=== PATIENT | female | born 1980 | race Caucasian/White ===

== ENCOUNTER 2020-11-16 16:44 | Outpatient (CLI) | payer OTHER, SELFPAY ==
--- NOTE | ~2020-11-16 | XR_ITS ---
EXAMINATION: XR abdomen obstructive series DATE: 11/16/2020 17:09 INDICATION: Worsening frequent lower abdominal pain. TECHNIQUE: Frontal supine and upright views of the abdomen were obtained. COMPARISON: None. FINDINGS: Moderate amount of stool scattered throughout the colon. No dilated loops of gas-filled bowel to sugg est obstruction. No free intraperitoneal gas. There is some gas within a moderate to large hiatal her daquan. Visualized lung bases are clear. Heart size is normal. IUD projects over the central pelvis in e xpected position. IMPRESSION: 1. Moderate to large hiatal hernia. 2. IUD. Reviewed, dictated and finalized at location A. [facility]
== END 2020-11-16 16:45 | disposition home or self-care (01) ==
LOC: CHSIMG 16:50
PROVIDERS: PCP Family Medicine; Visit Provider Family Medicine
DX: R10.84 Generalized abdominal pain (principal)
CPT/HCPCS: 74019

== ENCOUNTER 2021-02-05 08:33 | Outpatient (CLI) | payer OTHER, SELFPAY ==
--- NOTE | ~2021-02-05 | US_ITS ---
EXAMINATION: US right upper quadrant DATE: 02/05/2021 08:58 INDICATION: Epigastric abdominal pain. TECHNIQUE: Multiple grayscale and Doppler ultrasound images of the abdomen were obtained. COMPARISON: None FINDINGS: The visualized portions of the head and body of the pancreas are normal. The liver is teresa l without focal lesion. No liver surface nodularity. There is normal flow in main portal vein. The ga llbladder is normal in size. No gallstones or gallbladder wall thickening. There is no sonographic Mu rphy sign. The common duct is normal and measures 2 mm. IMPRESSION: 1. Normal right upper quadrant ultrasound. Reviewed, dictated and finalized at location A.
== END 2021-02-05 08:34 | disposition home or self-care (01) ==
PROVIDERS: PCP Family Medicine; Visit Provider Internal Medicine Gastroenterology
DX: R10.13 Epigastric pain (principal)
CPT/HCPCS: 76705

== ENCOUNTER → 2021-03-02 06:52 | Outpatient (CLI) | payer OTHER, SELFPAY ==
[2021-03-02 19:16] LABS: SARS-CoV-2 RNA PCR Negative
== END ==
PROVIDERS: PCP Family Medicine; Visit Provider Internal Medicine Gastroenterology
DX: Z01.812 Encounter for preprocedural laboratory examination (principal); Z20.822 Contact with and (suspected) exposure to COVID-19
CPT/HCPCS: C9803; U0003; U0005

== ENCOUNTER 2021-03-06 00:48 | Day surgery (SDC) | payer OTHER, SELFPAY ==
[2021-03-06 12:50] VITALS: BP 123/84; PULSE 105; RESP 18; TEMP 36.7; O2SAT 100
[2021-03-06] MEDS: LACTATED RINGERS 1,000 ML 150 ML IV CONT (13:00)
--- NOTE | 2021-03-06 13:16 | WPDANESEPPF ---
Anes - Initial Pre Proc Eval Procedure: Operation Date: 03/06/21 14:00 Proposed Procedures p Esophagogastroduodenoscopy & Colonoscopy - Jose Lockwood MD Date/Time: 03/06/21 13:16 Surgeon: Jose Lockwood MD Pre Op Diagnosis: diarrhea, epigastric pain Patient Data Age: 40 Gender: F Height: 5 ft 5 in Weight: 82.1 kg Last Vital Signs Temp 36.7 C 03/06/21 12:50 Pulse 105 H 03/06/21 12:50 Resp 18 03/06/21 12:50 BP 123/84 03/06/21 12:50 Pulse Ox 100 03/06/21 12:50 Allergies Allergy/AdvReac Type Severity Reaction Status Date / Time mold Allergy Mild Unknown Verified 03/06/21 12:48 Home Medications Medication Instructions Recorded Confirmed Type cetirizine 10 mg capsule 10 mg PO DAILY PRN 12/10/20 03/06/21 History citalopram 10 mg tablet 10 mg PO DAILY 12/10/20 03/06/21 History omeprazole magnesium [Prilosec OTC] 20 mg PO DAILY 03/01/21 03/06/21 History Patient hx anesthesia problems: none Family hx anesthesia problems: none PMFSH Past Medical History Medical History Anxiety Diarrhea Epigastric pain GERD (gastroesophageal reflux disease) Sinusitis Family History Family History Grandparent CAD (coronary artery disease) Leukemia Social History Social History Smoking status: Never smoker Alcohol intake: never Substance use: never Substance use type: does not use Gender identity (if verbalized by the patient): Female Spiritual care concerns: No Anes - Eval Final PreProcedure Day of Procedure 03/06/21 13:16 Patient weight: overweight Heart: regular rate and rhythm Lungs: clear to auscultation Airway: Mallampati scale class II Neurological: alert and oriented Last oral intake: >/= 8 hours ASA classification: II Emergent: no Anesthetic plan: proceed Anesthesia type and monitoring: general GIVS and standard monitoring Informed Consent: The patient's anesthetic plan and its attendant risks and benefits were discussed with the patient/family/POA. Questions were solicited and answers provided to the satisfaction of the patient/family/POA.
--- NOTE | 2021-03-06 13:17 | PM.HPGS ---
History of Present Illness History of Present Illness Consent: Risks, benefits, and alternatives have been discussed and questions answered. Patient agrees to proceed with procedure. Chief complaint: diarrhea, epigastric pain Narrative: Consuelo Carter is a 40 year old female with epigastric pain but improved since using omeprazole, also had intermittent loose stool but also has improved, never had scopes. Review of Systems Constitutional: Constitutional: Denies headache(s) and Denies weakness Eyes: Eyes: Denies blurry vision ENT: Reports Normal hearing present, Denies headache(s) and Denies neck pain Cardiovascular: Cardiovascular: Denies chest pain and Denies dyspnea Respiratory: Respiratory: Denies dyspnea Gastrointestinal: Gastrointestinal: Reports no additional gastrointestinal complaints Genitourinary: Genitourinary: Denies dysuria Musculoskeletal: Musculoskeletal: Denies neck pain Integumentary/Breasts: Skin/Breast: Denies dry skin Neurologic: Reports Normal hearing present, Denies headache(s) and Denies weakness Psychiatric: Psychiatric: Denies anxiety Endocrine: Endocrine: Denies change in body appearance Hematologic/Lymphatic: Hematologic/Lymphatic: Denies easy bleeding Allergic/Immunologic: Allergic/Immunologic: Denies urticaria PMFSH Past Medical History Medical History Anxiety Diarrhea Epigastric pain GERD (gastroesophageal reflux disease) Sinusitis Family History Family History Grandparent CAD (coronary artery disease) Leukemia Social History Social History Smoking status: Never smoker Alcohol intake: never Substance use: never Substance use type: does not use Gender identity (if verbalized by the patient): Female Spiritual care concerns: No Meds Home Medications and Allergies Home Medications Medication Instructions Recorded Confirmed Type cetirizine 10 mg capsule 10 mg PO DAILY PRN 12/10/20 03/06/21 History citalopram 10 mg tablet 10 mg PO DAILY 12/10/20 03/06/21 History omeprazole magnesium [Prilosec OTC] 20 mg PO DAILY 03/01/21 03/06/21 History Allergies Allergy/AdvReac Type Severity Reaction Status Date / Time mold Allergy Mild Unknown Verified 03/06/21 12:48 Vital Signs Vital Signs - 24 hr 03/06/21 12:50 Temperature 98.1 F Pulse Rate 105 H Respiratory Rate 18 Blood Pressure 123/84 Pulse Oximetry 100 Exam Const: General: comfortable and no acute distress HENMT: General nose exam: Normal nares present Eyes: General: appearance normal, both eyes and all related structures Neck: Neck: no JVD Resp: Auscultation: clear to auscultation bilaterally Cardio: Rate: regular rate Rhythm: regular rhythm GI: Inspection: non-distended GI Palp: Yes Soft to palpation Skin: General skin exam: normal color Neuro: General: gait normal Speech: normal speech Extrem: General: normal to inspection Psych: Mental Status: mental status grossly normal Assessment and Plan Assessment and plan (1) GERD (gastroesophageal reflux disease): Code(s): K21.9 - Gastro-esophageal reflux disease without esophagitis Status: Acute Assessment and Plan: egd with, better with ppi (2) Epigastric pain: Code(s): R10.13 - Epigastric pain Status: Acute (3) Diarrhea: Code(s): R19.7 - Diarrhea, unspecified Status: Acute Assessment and Plan: colonoscopy
[2021-03-06 13:46] VITALS: BP 91/58; PULSE 81; RESP 21; O2SAT 93
[2021-03-06 13:56] VITALS: BP 102/68; PULSE 79; RESP 18; O2SAT 95
[2021-03-06 14:06] VITALS: BP 124/68; PULSE 74; RESP 18; O2SAT 97
== END 2021-03-06 14:16 | disposition home or self-care (01) ==
PROVIDERS: PCP Family Medicine; Visit Provider Internal Medicine Gastroenterology
PROC: 0DJ08ZZ Inspection of Upper Intestinal Tract, Via Natural or Artificial Opening Endoscopic (ICD-10-PCS; CPT 43235; principal; 2021-03-06 14:00)
DX: R19.7 Diarrhea, unspecified (principal); K64.8 Other hemorrhoids; K44.9 Diaphragmatic hernia without obstruction or gangrene; K21.9 Gastro-esophageal reflux disease without esophagitis; F41.9 Anxiety disorder, unspecified
CPT/HCPCS: 45378; 43239; 88305; C9803; J2704; J7120; U0003; U0005

== ENCOUNTER 2024-08-03 16:26 | Emergency (ER) | payer OTHER, SELFPAY ==
[2024-08-03 16:26] VITALS: BP 131/85; PULSE 112; RESP 18; TEMP 37.1; O2SAT 98
--- NOTE | 2024-08-03 17:14 | ED.WOUNDLAC ---
HPI - Wound/Laceration General Chief Complaint: Wound/Laceration Stated Complaint: lac to arm Source: patient Mode of arrival: ambulatory Limitations: no limitations History of Present Illness HPI narrative: 43-year-old female with no significant past medical history he was standing on a step ladder and painting when she slipped and put her hand through glass window. She presents to the ED with -- laceration over the back of her left arm measuring 3 cm and a superficial laceration over left forearm measuring 6 cm. No other injuries noted. No head injury. No ENT bleeding. Patient was ambulatory after the fall. Onset (ago): hour(s) ( 1 hour ago) Location: other ( right upper extremity) Extremity Location: Right: arm and forearm Body four view annotation: 1. deep laceration measuring 3 cm 2. superficial laceration measuring [address]: home Patient tetanus UTD: No Context: accidental Associated symptoms: pain Related Data Home Medications Medication Instructions Recorded Confirmed cetirizine 10 mg capsule (All Day 10 mg PO DAILY PRN Allergy Symptoms 12/10/20 08/03/24 Allergy (cetirizine)) citalopram 10 mg tablet 10 mg PO DAILY 12/10/20 08/03/24 omeprazole magnesium 20 mg 20 mg PO DAILY 03/01/21 08/03/24 tablet,delayed release (Prilosec OTC) Allergies Allergy/AdvReac Type Severity Reaction Status Date / Time mold Allergy Mild Unknown Verified 08/03/24 16:48 Review of Systems Review of Systems: All systems reviewed & are unremarkable except as noted in HPI and below Constitutional: Constitutional: Reports as per HPI and Reports no additional constitutional complaints Eyes: Eyes: Reports as per HPI and Reports no additional eye complaints ENT: Reports system reviewed and no additional complaints, except as documented and Reports as per HPI Cardiovascular: Cardiovascular: Reports as per HPI and Reports no additional cardiovascular complaints Respiratory: Respiratory: Reports as per HPI and Reports no additional respiratory complaints Gastrointestinal: Gastrointestinal: Reports as per HPI and Reports no additional gastrointestinal complaints Genitourinary: Genitourinary: Reports no additional female genitourinary complaints Musculoskeletal: Musculoskeletal: Reports no additional musculoskeletal complaints and Reports as per HPI Integumentary/Breasts: Skin/Breast: Reports system reviewed and no additional complaints, except as docu and Reports as per HPI Comments: lacerations over the back of the the right upper extremity Neurologic: Reports system reviewed and no additional complaints, except as documented and Reports as per HPI Psychiatric: Psychiatric: Reports no additional psychiatric complaints and Reports as per HPI Endocrine: Endocrine: Reports no additional endocrine complaints and Reports as per HPI Hematologic/Lymphatic: Hematologic/Lymphatic: Reports no additional hematologic/lymphatic complaints and Reports as per HPI Allergic/Immunologic: Allergic/Immunologic: Reports no additional allergic/immunologic complaints and Reports as per HPI [facility] Past Medical History Medical History Anxiety Diarrhea Epigastric pain GERD (gastroesophageal reflux disease) Hiatal hernia Sinusitis Surgical History Surgical History History of tonsillectomy Family History Family History Grandparent CAD (coronary artery disease) Leukemia Father No problems noted. Social History Social History Smoking status: Never smoker Alcohol intake: never Substance use: never Substance use type: does not use Living arrangements: with family Occupation/Education: unemployed Gender identity (if verbalized by the patient): Female Spiritual care concerns: No
[2024-08-03] MEDS: TETANUS,DIPHTHERIA,AC PERTUSSIS ADULT 0.5 ML (ADACEL) IM (18:03)
[2024-08-03 18:11] VITALS: BP 112/71; PULSE 80; RESP 20; TEMP 36.9; O2SAT 99
== END 2024-08-03 18:13 | disposition home or self-care (01) ==
PROVIDERS: Emergency Provider Internal Medicine Critical Care Medicine; PCP Family Medicine
DX: S51.812A Laceration without foreign body of left forearm, initial encounter (principal); Z79.899 Other long term (current) drug therapy; Z23 Encounter for immunization; W25.XXXA Contact with sharp glass, initial encounter
CPT/HCPCS: 12004; 90471; 90715; 99283; J2003